=== PATIENT | male | born 1995 | race Hispanic/Latino ===

== ENCOUNTER 2023-01-22 17:26 | Emergency (ER) | payer OTHER ==
[2023-01-22 18:39] LABS: Absolute Lymphocytes (CBC) 0.9 K/uL (0.7-4.9); Hematocrit 40.3 % (39.6-49.0); MCV 80.7 fL (80-100); MPV 8.3 fL (7.6-11.3); RBC Red Blood Cell Count 4.99 M/uL (4.33-5.43)
[2023-01-22 18:48] LABS: Protime INR 1.03
[2023-01-22 18:53] LABS: Potassium 3.7 mmol/L (3.5-5.1)
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
[2023-01-22] MEDS ORDERED: FENTANYL CITR 100 MCG/2 ML ONE (20:05)
[2023-01-22] MEDS ORDERED: IBUPROFEN 400 MG TAB ONE (20:30)
[2023-01-22] MEDS ORDERED: HYDROCODONE/APAP 7.5/325 MG TAB ONE (20:30)
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
[2023-01-22 21:20] VITALS: TEMP 98
[2023-01-22 21:22] VITALS: O2SAT 99
[2023-01-22 21:23] VITALS: BP 145/74
== END 2023-01-22 21:12 | disposition home or self-care (01) ==
LOC: ER 17:26
DX: S32.028A Other fracture of second lumbar vertebra, initial encounter for closed fracture (principal); V43.52XA Car driver injured in collision with other type car in traffic accident, initial encounter
CPT/HCPCS: 85025; 80048; 36415; 86900; 86850; 85610; 86901; 70450; 72125; 71260; 74177; 96374; 99284; Q9967; J3010